=== PATIENT | male | born 1975 | race Caucasian/White ===

== ENCOUNTER 2018-04-23 21:36 | Emergency (ER) | payer BC ==
[2018-04-23 21:47] VITALS: TEMP 98.3
[2018-04-23] MEDS ORDERED: HYDROcodone/APAP 5-325MG 1 EACH TAB PO STA (23:12)
[2018-04-23] MEDS ORDERED: KETOROLAC 30 MG/ML 1 ML VIAL IM STA (23:12)
[2018-04-23 23:14] VITALS: BP 164/98; PULSE 75; RESP 18
--- NOTE | 2018-04-23 23:56 | XR ---
EXAMINATION TYPE: XR Hip RT and AP Pelvis DATE OF EXAM: 04/23/2018 COMPARISON: NONE HISTORY: Back pain. Right buttock pain TECHNIQUE: A single AP view of the pelvis is obtained. Two views of the right hip are obtained. FINDINGS: Pelvic ring is intact. Proximal right femur and hip joint appear normal. There is no sign o f hip dysplasia. IMPRESSION: Negative pelvis and right hip exam.
--- NOTE | 2018-04-23 23:56 | XR ---
EXAMINATION TYPE: XR lumbosacral spine min 4V DATE OF EXAM: 04/23/2018 COMPARISON: NONE HISTORY: Back pain TECHNIQUE: 5 views FINDINGS: Lumbar vertebra have normal spacing and alignment. Posterior elements are intact. Sacroilia c joints appear normal. IMPRESSION: Normal lumbar spine. No fracture.
[2018-04-24] MEDS ORDERED: ACET/COD 300 MG/30 MG STARTER PACK 6 TAB BTL PO STA (01:08)
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
== END 2018-04-24 01:54 | disposition home or self-care (01) ==
LOC: EC 21:36
DX: S76.011A Strain of muscle, fascia and tendon of right hip, initial encounter (principal); M54.5 Low back pain; I10 Essential (primary) hypertension; Z79.899 Other long term (current) drug therapy; Z88.8 Allergy status to other drugs, medicaments and biological substances; W01.0XXA Fall on same level from slipping, tripping and stumbling without subsequent striking against object, initial encounter; Y92.89 Other specified places as the place of occurrence of the external cause; Z53.8 Procedure and treatment not carried out for other reasons
CPT/HCPCS: 72110; 73502; 99283; 96372; J1885

== ENCOUNTER 2019-02-23 19:10 | Observation (INO) | payer BC ==
[2019-02-23] MEDS ORDERED: ASPIRIN 81 MG PO STA (19:46)
[2019-02-23] MEDS ORDERED: SODIUM CHLORIDE 0.9% 2,000 ML IV ONE (19:46)
--- NOTE | 2019-02-23 19:50 | ED ---
Chest Pain HPI - General Chief Complaint: Chest Pain Stated Complaint: chest tightness Time Seen by Provider: 02/23/19 19:31 Source: patient Mode of arrival: wheelchair Limitations: no limitations - History of Present Illness Initial Comments: Patient presents with a chief complaint of palpitations. This been going on since today. The patient states that he was at work and felt a sudden fluttering in his chest. He tried to rest but this did not alleviate his symptoms. He denies identify any inciting incidences. There were no aggravating or alleviating factors. Timing was constant. Patient states that he has never had any previous episodes of the same. He did not have any cardiac history. - Related Data Home Medications Medication Instructions Recorded Confirmed Losartan Potassium [Cozaar] 100 mg PO DAILY 04/23/18 02/23/19 Sertraline HCl [Zoloft] 100 mg PO DAILY 04/23/18 02/23/19 Hydrochlorothiazide [Hydrodiuril] 25 mg PO DAILY 02/23/19 02/23/19 Allergies Allergy/AdvReac Type Severity Reaction Status Date / Time prochlorperazine AdvReac Hallucinati Verified 02/23/19 19:57 [From Compazine] ons prochlorperazine edisylate AdvReac Hallucinati Verified 02/23/19 19:57 [From Compazine] ons prochlorperazine maleate AdvReac Hallucinati Verified 02/23/19 19:57 [From Compazine] ons Review of Systems ROS Statement: Those systems with pertinent positive or pertinent negative responses have been documented in the HPI. ROS Other: All systems not noted in ROS Statement are negative. Cardiovascular: Reports: palpitations Past Medical History Past Medical History: Hypertension Additional Past Medical History / Comment(s): fx L4-L5 History of Any Multi-Drug Resistant Organisms: None Reported Past Surgical History: No Surgical Hx Reported Past Psychological History: No Psychological Hx Reported Smoking Status: Never smoker Past Alcohol Use History: None Reported Past Drug Use History: None Reported General Exam Limitations: no limitations General appearance: alert, in no apparent distress Head exam: Present: atraumatic, normocephalic Eye exam: Present: normal appearance ENT exam: Present: normal exam Neck exam: Present: normal inspection Respiratory exam: Present: normal lung sounds bilaterally. Absent: respiratory distress, wheezes Cardiovascular Exam: Present: regular rate, tachycardia GI/Abdominal exam: Present: soft. Absent: distended, tenderness Rectal exam: Present: deferred Extremities exam: Present: normal inspection Back exam: Present: normal inspection Neurological exam: Present: alert, oriented X3 Psychiatric exam: Present: normal affect, normal mood Skin exam: Present: warm, dry, intact Course Vital Signs 02/23/19 02/23/19 02/23/19 19:18 19:39 19:40 Temperature 98.9 F Pulse Rate 144 H 147 H Pulse Rate [ 146 H Pulse Oximetery ] Respiratory 20 25 H Rate Blood Pressure 146/103 142/114 O2 Sat by Pulse 96 96 Oximetry 02/23/19 02/23/19 02/23/19 19:50 20:10 20:30 Temperature Pulse Rate 101 H 98 93 Pulse Rate [ Pulse Oximetery ] Respiratory 18 16 14 Rate Blood Pressure 135/101 137/104 O2 Sat by Pulse 95 96 Oximetry Chest Pain MDM - [facility] Patient presents with a chief complaint of palpitations. On initial evaluation, vital signs show tachycardia but otherwise stable. Initial EKG shows SVT with a rate of 147 bpm. After an attempt vagal maneuvers, the patient converted to sinus rhythm. Repeat EKG at 194 shows sinus tachycardia with a rate of 102 bpm, segments are within normal limits, no acute ischemic findings. Patient be evaluated patient basic labs including cardiac enzymes and chest x-ray. 9:09 PM Laboratory evaluation this patient is unremarkable. Chest x-ray shows no acute process. On several re-evaluations, the patient remains in normal sinus rhythm. He is symptom-free at this time. Case discussed with Dr. Moore who accepts admission. I will place a consult to cardiology. Disposition Clinical Impression: Moderate risk chest pain, SVT (supraventricular tachycardia) Disposition: ADMITTED IP TO THIS HOSP Condition: Good Is patient prescribed a controlled substance at d/c from ED?: No Referrals: None,Stated [Primary Care Provider] - 1-2 days Decision to Admit Reason: Admit from EC - Out of Hospital Transfer - Req. Specs Out of Hospital Transfer - Requested Specifics: Telemetry Unit
[2019-02-23 20:08] LABS: Basophils # (A) 0.1 k/uL (0-0.2); Basophils % (A) 1 %; Eosinophils # (A) 0.6 k/uL (0-0.7); Eosinophils % (A) 7 %; HCT 49.4 % (39.0-53.0); HGB 15.8 gm/dL (13.0-17.5); Lymphocytes # (A) 2.3 k/uL (1.0-4.8); Lymphocytes % (A) 26 %; MCH 27.8 pg (25.0-35.0); MCHC 32.1 g/dL (31.0-37.0); MCV 86.6 fL (80.0-100.0); Mean Platelet Volume 6.9; Monocytes # (A) 0.6 k/uL (0-1.0); Monocytes % (A) 7 %; Neutrophils % (A) 57 %; Platelet Count 293 k/uL (150-450); RDW 13.3 % (11.5-15.5); WBC 8.9 k/uL (3.8-10.6)
[2019-02-23 20:17] LABS: African American GFR (CKD) >90 (>60 ml/min/1.73 sqM); Anion Gap 10 mmol/L; Blood Urea Nitrogen 17 mg/dL (9-20); Calcium 9.4 mg/dL (8.4-10.2); Carbon Dioxide 26 mmol/L (22-30); Chloride 106 mmol/L (98-107); Glucose 101 mg/dL (74-99); Potassium 3.8 mmol/L (3.5-5.1); Sodium 142 mmol/L (137-145)
--- NOTE | 2019-02-23 20:30 | XR ---
EXAMINATION TYPE: XR chest 2V DATE OF EXAM: 02/23/2019 COMPARISON: NONE HISTORY: Short of breath TECHNIQUE: Frontal and lateral views of the chest are obtained. FINDINGS: Heart and mediastinum are normal. Lungs are clear of infiltrate. There is no pleural effus ion. Bony thorax is intact. IMPRESSION: No active cardiopulmonary disease. Normal heart.
[2019-02-23] MEDS ORDERED: NALOXONE 0.4 MG/ML 1 ML VIAL IV PRN (21:11)
--- NOTE | 2019-02-23 22:37 | P.HPIM ---
History of Present Illness H&P Date: 02/23/19 The patient is a 44 yo M with a PMH of HTN who presented to the ED for sudden onset of palpitations. The patient reports that he was in his usual state of health, had finished a day of work and was sitting in a chair when he suddenly developed palpitations with subsequent chest tightness and shortness of breath. The palpitations were non-remitting. He has never had such symptoms before. The patient continued to have his symptoms along with a substernal chest tightness for which he came to the ED where he was noted to be tachycardic to 150 with SVT. He underwent a tilt-table vagal maneuver which aborted the SVT. He noted no prior cardiac history and denied fever, chills, nausea, or vomiting. Also denied abdominal pain, diarrhea, LE pain, LE swelling, prolonged immobilization, recent travel, or sick contacts. The patient reported that the chest discomfort and SOB resolved 5 minutes after resolution of SVT. Laboratory evaluation in the ED revealed Troponin < 0.012, BNP 146, TSH 1.93, K 3.8, Cr 0.82, WBC 8.9, and Hgb 15.8. CXR revealed no acute abnormalities. EKG revealed SVT @ 139 bpm. He is being admitted to the medicine service under observation for cardiology evaluation. Review of Systems Pertinent positives and negatives as discussed in HPI, a complete review of systems was performed and all other systems are negative. Past Medical History Past Medical History: Hypertension Additional Past Medical History / Comment(s): fx L4-L5 History of Any Multi-Drug Resistant Organisms: None Reported Past Surgical History: No Surgical Hx Reported Past Psychological History: No Psychological Hx Reported Smoking Status: Never smoker Past Alcohol Use History: None Reported Past Drug Use History: None Reported - Past Family History Mother Family Medical History: Diabetes Mellitus Medications and Allergies Home Medications Medication Instructions Recorded Confirmed Type Losartan Potassium [Cozaar] 100 mg PO DAILY 04/23/18 02/23/19 History Sertraline HCl [Zoloft] 100 mg PO DAILY 04/23/18 02/23/19 History Hydrochlorothiazide [Hydrodiuril] 25 mg PO DAILY 02/23/19 02/23/19 History Allergies Allergy/AdvReac Type Severity Reaction Status Date / Time prochlorperazine AdvReac Hallucinati Verified 02/23/19 19:57 [From Compazine] ons prochlorperazine edisylate AdvReac Hallucinati Verified 02/23/19 19:57 [From Compazine] ons prochlorperazine maleate AdvReac Hallucinati Verified 02/23/19 19:57 [From Compazine] ons Physical Exam Vitals: Vital Signs Temp Pulse Pulse Resp BP Pulse Ox 02/23/19 20:30 93 14 137/104 96 02/23/19 20:10 98 16 135/101 02/23/19 19:50 101 H 18 95 02/23/19 19:40 146 H 02/23/19 19:39 147 H 25 H 142/114 96 02/23/19 19:18 98.9 F 144 H 20 146/103 96 Intake and Output 02/23/19 02/23/19 02/23/19 06:59 14:59 22:59 Other: Weight 165.561 kg General: non toxic, no distress, appears at stated age, obese M Derm: no unusual rashes/lesions no unusual ecchymoses, warm, dry Head: atraumatic, normocephalic, symmetric Eyes: EOMI, no lid lag, anicteric sclera, pupils equal round reactive to light ENT: Nose and ears atraumatic, no thrush, no pharyngeal erythema Neck: No thyromegaly, no cervical lymphadenopathy, trachea midline, supple Mouth: no lip lesion, mucus membranes moist Cardiovascular: S1S2 reg, no murmur, positive posterior tibial pulse bilateral, no edema, capillary refill less than 2 seconds Lungs: CTA bilateral, no rhonchi, no rales , no accessory muscle use Abdominal: soft, nontender to palpation, no guarding, no appreciable organomegaly, normal bowel sounds Ext: no gross muscle atrophy, muscle strength 5 out of 5 in all 4 extremities grossly, no contractures, Neuro: CN II-XI grossly intact, light touch intact all 4 extremities, finger to nose within normal limits, Psych: Alert, oriented, appropriate affect Results CBC & Chem 7: 02/23/19 19:35 02/23/19 19:35 Labs: Abnormal Lab Results - Last 24 Hours (Table) 02/23/19 Range/Units 19:35 Glucose 101 H (74-99) mg/dL Assessment and Plan Plan: Supraventricular tachycardia -C/w Cardiac monitoring -Cardiology consulted -Trend troponin HTN -Resume home meds Morbid obesity -Advised patient on importance of lifestyle modifications and follow-up as outpatient DVT prophylaxis -Heparin The patient is admitted with an anticipated less than 2 midnight stay for evaluation of SVT CODE STATUS:Full Code Discussed with: Patient Anticipated discharge date: 02/24/[address]: Home A total of 40 minutes was spent on the care of this complex patient more than 50% of the time was spent in counseling and care coordination.
[2019-02-24] MEDS: HEPARIN SODIUM,PORCINE 5,000 UNIT/ML 1 ML VIAL SQ SCH ×2 (00:07→10:07)
[2019-02-24 07:13] LABS: Basophils # (A) 0.1 k/uL (0-0.2); Basophils % (A) 1 %; Eosinophils # (A) 0.5 k/uL (0-0.7); Eosinophils % (A) 9 %; HCT 47.1 % (39.0-53.0); HGB 14.7 gm/dL (13.0-17.5); Lymphocytes # (A) 1.6 k/uL (1.0-4.8); Lymphocytes % (A) 29 %; MCH 27.7 pg (25.0-35.0); MCHC 31.2 g/dL (31.0-37.0); MCV 88.7 fL (80.0-100.0); Mean Platelet Volume 7.7; Monocytes # (A) 0.5 k/uL (0-1.0); Monocytes % (A) 8 %; Neutrophils # (A) 2.9 k/uL (1.3-7.7); Neutrophils % (A) 51 %; Platelet Count 210 k/uL (150-450); RBC 5.31 m/uL (4.30-5.90); RDW 14.7 % (11.5-15.5); WBC 5.7 k/uL (3.8-10.6)
[2019-02-24 07:30] LABS: African American GFR (CKD) >90 (>60 ml/min/1.73 sqM); Anion Gap 6 mmol/L; Blood Urea Nitrogen 16 mg/dL (9-20); Calcium 8.6 mg/dL (8.4-10.2); Carbon Dioxide 30 mmol/L (22-30); Chloride 106 mmol/L (98-107); Glucose 114 mg/dL (74-99); Potassium 4.1 mmol/L (3.5-5.1); Sodium 142 mmol/L (137-145)
[2019-02-24 08:02] VITALS: RESP 16; TEMP 98
[2019-02-24] MEDS ORDERED: LOSARTAN 50 MG TAB PO SCH (09:00)
[2019-02-24] MEDS ORDERED: HYDROCHLOROTHIAZIDE 25 MG TAB PO SCH (09:00)
[2019-02-24] MEDS ORDERED: METOPROLOL TARTRATE 50 MG TAB PO SCH (09:45)
[2019-02-24 11:24] VITALS: BP 146/79; PULSE 79
--- NOTE | 2019-02-24 11:43 | P.DS ---
Providers Date of admission: 02/23/19 21:11 Expected date of discharge: 02/24/19 Attending physician: Oral Moore MD Consults: 02/23/19 21:12 Consult Physician Routine Consulting Provider: Drew Anguiano Consult Reason/Comments: SVT, chest pain Do you want consulting provider notified?: Yes, Notify in am Primary care physician: Stated None - Discharge Diagnosis(es) (1) SVT (supraventricular tachycardia) Status: Acute (2) Essential hypertension Status: Acute (3) Morbid obesity Status: Acute Hospital Course: The patient is a 44 yo M with a PMH of HTN who presented to the ED for sudden onset of palpitations and chest pain and was admitted with supraventricular tachycardia after he was noted to have a heart rate of 150. In the ED he patient underwent tilt table vagal maneuver which aborted his SVT. The patient was seen by cardiology and echocardiogram was ordered revealing preserved LVEF of 60-65%, patient was subsequently cleared for discharge and started on metoprolol. He was subsequently discharged home in stable condition and told to follow-up with cardiology in 2 weeks. This discharge process took approximately 30 minutes Focused exam Cardiovascular: regular rate and rhythm, no murmurs, rubs or gallops Patient Condition at Discharge: Good Plan - Discharge Summary Discharge Rx Participant: Yes New Discharge Prescriptions: New Metoprolol Tartrate [Lopressor] 50 mg PO DAILY #30 tab Metoprolol Tartrate [Lopressor] 25 mg PO HS #30 tab Continue Losartan Potassium [Cozaar] 100 mg PO DAILY Sertraline HCl [Zoloft] 100 mg PO DAILY Hydrochlorothiazide [Hydrodiuril] 25 mg PO DAILY Discharge Medication List Losartan Potassium [Cozaar] 100 mg PO DAILY 04/23/18 [History] Sertraline HCl [Zoloft] 100 mg PO DAILY 04/23/18 [History] Hydrochlorothiazide [Hydrodiuril] 25 mg PO DAILY 02/23/19 [History] Metoprolol Tartrate [Lopressor] 25 mg PO HS #30 tab 02/24/19 [Rx] Metoprolol Tartrate [Lopressor] 50 mg PO DAILY #30 tab 02/24/19 [Rx] Follow up Appointment(s)/Referral(s): Nic Castillo MD [STAFF PHYSICIAN] - 03/11/19 2:00 pm None,Stated [Primary Care Provider] - 1 Week (Call [facility] for a list of providers.) Patient Instructions/Handouts: Supraventricular Tachycardia (DC), Chest Pain (DC) Discharge Disposition: HOME SELF-CARE
--- NOTE | 2019-02-24 12:27 | ECHOF ---
Referral Reason:Assess LV function MEASUREMENTS -------- HEIGHT: 193.0 cm WEIGHT: 165.1 kg BP: 156/88 RVIDd: 3.2 cm (< 3.3) IVSd: 1.5 cm (0.6 - 1.1) LVIDd: 4.2 cm (3.9 - 5.3) LVPWd: 1.5 cm (0.6 - 1.1) IVSs: 1.8 cm LVIDs: 3.1 cm LVPWs: 1.6 cm LA Diam: 3.8 cm (2.7 - 3.8) LAESV Index (A-L): 26.06 ml/m Ao Diam: 4.0 cm (2.0 - 3.7) MV EXCURSION: 16.790 mm (> 18.000) MV EF SLOPE: 76 mm/s (70 - 150) EPSS: 0.5 cm MV E Charlie: 0.75 m/s MV DecT: 211 ms MV A Charlie: 0.57 m/s MV E/A Ratio: 1.31 FINDINGS -------- Sinus rhythm. This was a technically difficult study with suboptimal views. The left ventricular size is normal. There is moderate concentric left ventricular hypertrophy. O verall left ventricular systolic function is normal with, an EF between 60 - 65 %. The right ventricle is normal in size. Normal LA size by volume 22+/-6 ml/m2. The right atrium is normal in size. 5 ml of Lumason was utilized for enhancement of images. Interatrial and interventricular septum intact. The aortic valve was not well visualized. The mitral valve is normal. The tricuspid valve was not well visualized. The pulmonic valve was not well visualized. The aortic root is dilated measuring 4.0cm. Normal inferior vena cava with normal inspiratory collapse consistent with estimated right atrial pre ssure of 5 mmHg. There is no pericardial effusion. CONCLUSIONS -------- 1. Sinus rhythm. 2. This was a technically difficult study with suboptimal views. 3. The left ventricular size is normal. 4. There is moderate concentric left ventricular hypertrophy. 5. Overall left ventricular systolic function is normal with, an EF between 60 - 65 %. 6. The right ventricle is normal in size. 7. Normal LA size by volume 22+/-6 ml/m2. 8. The right atrium is normal in size. 9. 5 ml of Lumason was utilized for enhancement of images. 10. Interatrial and interventricular septum intact. 11. The aortic valve was not well visualized. 12. The mitral valve is normal. 13. The tricuspid valve was not well visualized. 14. The pulmonic valve was not well visualized. 15. The aortic root is dilated measuring 4.0cm. 16. Normal inferior vena cava with normal inspiratory collapse consistent with estimated right atrial pressure of 5 mmHg. 17. There is no pericardial effusion. COMMUNICATIONS OFFICER: Becky Yen RDCS
--- NOTE | 2019-02-24 12:37 | P.CRDCN ---
History of Present Illness Consult date: 02/24/19 Reason for Consult (text): SVT/chest pain Chief complaint: SVT/chest pain History of present illness: HISTORY OF PRESENT ILLNESS AND PLAN: This is a [44]-year-old [male] with history of hypertension, L4L5 fracture, ob esity, collar bone fracture and diverticulitis. Patient presents in the emergency department with complaints of [palpitations, lightheadedness and mild chest pressure. Patient states he was sitting at the chris in a chair when suddenly he felt fluttering/palpitations in his chest. Patient states he also felt lightheaded and began to experience chest tightness. States he checked heart rate at home and it was 115. Denies aggravating or relieving factors. Pt has history of obesity and hypertension. Takes Losartan 100 mg daily and HZTZ 25mg daily at home. States he had not drink any alcohol during the event. He is a nonsmoker. He does have a history of low magnesium and low potassium. C urrently sitting in bed with no complaints of chest pain, chest pressure, shortness of breath or palpitations. Does not follow with cardiology. No A. fib history.]. SIGNIFICANT PAST MEDICAL HISTORY: [Hypokalemia, hypomagnesium, hypertension, L4L5 fracture, obesity, collar bone fracture and diverticulitis.] PAST SURGICAL HISTORY: See list. EKG shows [sinus rhythm], heart rate [87] bpm. Troponins negative x [3]. SIGNIFICANT LABORATORY VALUES: [CBC/BMP, WNL K4.1 Magnesium 2.2. Troponins negative 3]. Chest x-ray [WNL]. [facility] = WNL. Preserved systolic function, EF WNL. REVIEW OF SYSTEMS: CONSTITUTIONAL: [Denies fever. Denies chills. Complains of prior lightheadedness none currently.] EYES: Denies blurred vision. [Denies blurred vision or vision changes. Denies eye pain.] EARS, NOSE, MOUTH & THROAT: [Denies headache. Denies sore throat. Denies ear pain Denies hemoptysis.] CARDIOVASCULAR: [C/o prior chest pain. Denies shortness of breath. Denies orthopnea. Denies PND. C/O prior palpitations.] RESPIRATORY: [Denies cough. Denies shortness of breath. ] GASTROINTESTINAL: [Denies abdominal pain or distention. Denies diarrhea. Denies constipation. Denies nausea. Denies vomiting.] MUSCULOSKELETAL: [Denies myalgias.] INTEGUMENTARY: [Denies pruitis. Denies rash.] ENDOCRINE: [Denies fatigue. Denies weight change. Denies polydipsia. Denies po lyurina Denies heat/cold intolerance.] GENITOURINARY:[ Denies burning, hematuria or urgency with micturation.] HEMATOLOGIC: [Denies history of anemia. Denies bleeding.] NEUROLOGIC: [Denies numbness. Denies tingling. Denies weakness.] PSYCHIATRIC: [Denies anxiety. Denies depression.] PHYSICAL EXAM: VITAL SIGNS: WNL GENERAL: Well developed, in no acute distress. HEENT: Head is atraumatic, normocephalic. Pupils are equal, round. Extra ocular movements intact. Mucous membranes moist. Neck supple. No JVD. No carotid bruit. No thyromegaly. LUNGS: Clear to auscultation no wheezes, rales or rhonchi. No chest wall tenderness on palpation or with deep breathing. HEART: Regular rate and rhythm, no rubs or gallops. S1 and S2 heard. No murmur. ABDOMEN: Abdominal exam, WNL. Bowel sounds x4 quads. Soft, non-tender, without masses, organomegaly, or abdominal aorta enlargement. EXTREMITIES/VASCULAR: Extremities have easily palpable radial, femoral, dorsalis pedis and posterior tibial pulses. No cyanosis, calf tenderness. No BLE edema. NEUROLOGIC: Patient is awake, alert and oriented x3. No focal neurologic abnormalities. FINAL IMPRESSION: 1. [sinus tachycardia - resolved]. 2. [chest pain- resolved]. 3. [hypertension -currently stable]. 4. [obesity]. PLAN: [Patient to echocardiogram, already completed, preserved systolic functio n, EF WNL. Patient currently sinus rhythm heart rate 80s. Start metoprolol tartrate 50 mg a.m. and 25 mg p.m. Patient advised to eat foods high in potassium and magnesium with HZTZ. Patient advised weight loss and exercise. Clear from a cardiology perspective for discharge. Thank you kindly for this consult.] Nurse Practitioner note has been reviewed by the Physician. Signing provider agrees with the documented findings, assessment and plan of care. Past Medical History Past Medical History: Hypertension Additional Past Medical History / Comment(s): fx L4-L5 History of Any Multi-Drug Resistant Organisms: None Reported Past Surgical History: No Surgical Hx Reported Smoking Status: Never smoker - Past Family History Mother Family Medical History: Diabetes Mellitus Medications and Allergies Home Medications Medication Instructions Recorded Confirmed Type Losartan Potassium [Cozaar] 100 mg PO DAILY 04/23/18 02/23/19 History Sertraline HCl [Zoloft] 100 mg PO DAILY 04/23/18 02/23/19 History Hydrochlorothiazide [Hydrodiuril] 25 mg PO DAILY 02/23/19 02/23/19 History Metoprolol Tartrate [Lopressor] 25 mg PO HS #30 tab 02/24/19 Rx Metoprolol Tartrate [Lopressor] 50 mg PO DAILY #30 tab 02/24/19 Rx Allergies Allergy/AdvReac Type Severity Reaction Status Date / Time prochlorperazine AdvReac Hallucinati Verified 02/23/19 19:57 [From Compazine] ons prochlorperazine edisylate AdvReac Hallucinati Verified 02/23/19 19:57 [From Compazine] ons prochlorperazine maleate AdvReac Hallucinati Verified 02/23/19 19:57 [From Compazine] ons Physical Exam Vitals: Vital Signs Temp Pulse Pulse Resp BP BP BP 02/24/19 11:24 98 F 79 16 146/79 02/24/19 08:00 98 F 88 16 156/88 02/24/19 04:00 84 18 142/94 02/24/19 00:00 97.9 F 88 18 150/100 151/93 02/23/19 22:50 97.8 F 02/23/19 22:30 97.8 F 86 18 148/99 02/23/19 21:10 93 17 143/101 02/23/19 20:50 93 16 148/98 02/23/19 20:40 103 H 16 150/106 02/23/19 20:30 93 14 137/104 02/23/19 20:10 98 16 135/101 02/23/19 19:50 101 H 18 02/23/19 19:40 146 H 02/23/19 19:39 147 H 25 H 142/114 02/23/19 19:18 98.9 F 144 H 20 146/103 Pulse Ox 02/24/19 11:24 98 02/24/19 08:00 96 02/24/19 04:00 94 L 02/24/19 00:00 94 L 02/23/19 22:50 02/23/19 22:30 94 L 02/23/19 21:10 97 02/23/19 20:50 95 02/23/19 20:40 97 02/23/19 20:30 96 02/23/19 20:10 02/23/19 19:50 95 02/23/19 19:40 02/23/19 19:39 96 02/23/19 19:18 96 Intake and Output 02/23/19 02/24/19 02/24/19 22:59 06:59 14:59 Intake Total 300 Balance 300 Intake: Oral 300 Other: Voiding Method Toilet Toilet # Voids 1 Weight 165.561 kg 165.2 kg Results 02/24/19 06:50 02/24/19 06:50 Cardiac Enzymes 02/23/19 02/24/19 02/24/19 Range/Units 19:35 01:45 06:50 Troponin I <0.012 <0.012 <0.012 (0.000-0.034) ng/mL CBC 02/23/19 02/24/19 Range/Units 19:35 06:50 WBC 8.9 5.7 (3.8-10.6) k/uL RBC 5.70 5.31 (4.30-5.90) m/uL Hgb 15.8 14.7 (13.0-17.5) gm/dL Hct 49.4 47.1 (39.0-53.0) % Plt Count 293 210 (150-450) k/uL Comprehensive Metabolic Panel 02/23/19 02/24/19 Range/Units 19:35 06:50 Sodium 142 142 (137-145) mmol/L Potassium 3.8 4.1 (3.5-5.1) mmol/L Chloride 106 106 (98-107) mmol/L Carbon Dioxide 26 30 (22-30) mmol/L BUN 17 16 (9-20) mg/dL Creatinine 0.82 0.84 (0.66-1.25) mg/dL Glucose 101 H 114 H (74-99) mg/dL Calcium 9.4 8.6 (8.4-10.2) mg/dL Current Medications Generic Name Dose Route Start Last Admin Trade Name Freq PRN Reason Stop Dose Admin Heparin Sodium (Porcine) 5,000 unit 02/24/19 00:00 02/24/19 10:07 Heparin SQ Not Given Q8HR CABRERA Hydrochlorothiazide 25 mg 02/24/19 09:00 02/24/19 10:06 Hydrodiuril PO 25 mg DAILY CABRERA Administration Losartan Potassium 100 mg 02/24/19 09:00 02/24/19 11:26 Cozaar PO 100 mg DAILY CABRERA Administration Metoprolol Tartrate 50 mg 02/24/19 09:45 02/24/19 10:06 Lopressor PO 50 mg DAILY CABRERA Administration Metoprolol Tartrate 25 mg 02/24/19 21:00 Lopressor PO HS CABRERA Naloxone HCl 0.2 mg 02/23/19 21:11 Narcan IV Q2M PRN Opioid Reversal Intake and Output 02/23/19 02/24/19 02/24/19 22:59 06:59 14:59 Intake Total 300 Balance 300 Intake: Oral 300 Other: Voiding Method Toilet Toilet # Voids 1 Weight 165.561 kg 165.2 kg 02/24/19 06:50 02/24/19 06:50 - EKG Interpretation EKG: sinus rhythm
[2019-02-24] MEDS ORDERED: METOPROLOL TARTRATE 25 MG TAB PO SCH (21:00)
== END 2019-02-24 13:31 | disposition home or self-care (01) ==
LOC: EC 19:10 → 3SCARD 21:11
PROVIDERS: ADMIT Internal Medicine; ATTEND Internal Medicine
DX: I47.1 Supraventricular tachycardia (principal); R07.89 Other chest pain; I10 Essential (primary) hypertension; E66.01 Morbid (severe) obesity due to excess calories; Z68.41 Body mass index [BMI] 40.0-44.9, adult; K57.90 Diverticulosis of intestine, part unspecified, without perforation or abscess without bleeding; Z79.899 Other long term (current) drug therapy; Z88.8 Allergy status to other drugs, medicaments and biological substances; Z87.81 Personal history of (healed) traumatic fracture; Z83.3 Family history of diabetes mellitus
CPT/HCPCS: 99285; 36415; 93005; 93306; 83880; 80048 ×2; 84443; 83735; 84484 ×2; 85025 ×2; 71046; G0378 ×2; Q9950

== ENCOUNTER 2019-06-29 17:42 | Emergency (ER) | payer BC ==
[2019-06-29 18:18] VITALS: PULSE 88
[2019-06-29] MEDS ORDERED: KETOROLAC 30 MG/ML 1 ML VIAL IM STA (18:46)
--- NOTE | 2019-06-29 19:21 | XR ---
EXAMINATION TYPE: XR ankle complete LT DATE OF EXAM: 06/29/2019 COMPARISON: NONE HISTORY: Pain FINDINGS: Three views of the ankle demonstrate the ankle mortise to be intact and symmetric. Soft tissue edema is seen. On the lateral view there is a lucency through the upper margin of the calcaneus. Correlate with point tenderness. Calcaneal spur noted. IMPRESSION: 1. There is a lucency along the upper margin of the calcaneus for which correlation with point tender ness is recommended. This could related to superimposed structures within the overlying talus. Correl ate clinically to exclude fracture.
--- NOTE | 2019-06-29 19:22 | XR ---
EXAMINATION TYPE: XR foot complete LT DATE OF EXAM: 06/29/2019 COMPARISON: NONE HISTORY: Pain TECHNIQUE: Three views are submitted. FINDINGS: A lucency along the upper margin of the calcaneus which may represent superimposition the talus relat ty the calcaneus. Spur is noted. Remaining osseous structures intact. Joint spaces are preserved. IMPRESSION: 1. Lucency along the upper margin of the calcaneus most likely related to superimposed talus overlyin g portions of the calcaneus. Correlation with point tenderness is recommended
--- NOTE | 2019-06-29 20:36 | CT ---
EXAMINATION TYPE: CT ankle LT wo con DATE OF EXAM: 06/29/2019 COMPARISON: Left ankle and foot x-ray earlier today HISTORY: left ankle pain and swelling, no injury. CT DLP: 48.8 mGycm Automated exposure control for dose reduction was used. CONTRAST: Performed without IV contrast CT left ankle. FINDINGS: Os trigonum is present posterior to talus. No acute fracture is seen. Ankle mortise symmetr y is maintained. There is some subchondral cystic change involving the os trigonum with some surround ing joint effusion from the posterior tibiotalar joint. Marked focal fluid along the lateral margin o f the FHL axial image 32 posterior to distal tibial metaphysis mild subcutaneous edema over lateral m alleolus. Small to moderate-sized superior calcaneal spur. IMPRESSION: No acute fracture or dislocation in the left ankle. Probable prominent focal tenosynoviti s of FHL. 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 MRI noted more sensitive for both. Correlate clinically.
[2019-06-29] MEDS ORDERED: IBUPROFEN 600 MG STARTER PACK 4 TAB BTL PO STA (20:47)
[2019-06-29] MEDS ORDERED: ACET/COD 300 MG/30 MG STARTER PACK 6 TAB BTL PO STA (20:47)
--- NOTE | 2019-06-29 20:47 | ED ---
Extremity Problem HPI - General Chief complaint: Extremity Problem,Nontraumatic Stated complaint: ankle injury Time Seen by Provider: 06/29/19 18:20 Source: patient Mode of arrival: wheelchair Limitations: physical limitation - History of Present Illness Initial comments: 44-year-old male patient presents to the emergency department today for evaluation of left ankle and foot pain. Patient states he has been having this pain intermittently over the last couple of years. Patient states over the last 2 days it has been much worse. States he woke this morning with significant pain was unable to bend the ankle. States that was causing extreme discomfort to ambulate. States he did take several medications at home including Aleve, ibuprofen, mobic, and Ultram without relief. He denies any known injury. Patient states that he did see foot and ankle specialist 3 days ago who did administer a cortisone injection to the joint. Patient states that this did not seem to help. He denies any numbness or tingling to the foot. Denies fever or chills. Denies any swelling or redness to the area. Patient denies any headache, neck pain, back pain, chest pain, shortness of breath, dizziness, weakness, abdominal pain, nausea, vomiting, or difficulties with bowel movements or urination. - Related Data Home Medications Medication Instructions Recorded Confirmed Losartan Potassium [Cozaar] 100 mg PO DAILY 04/23/18 06/29/19 Sertraline HCl [Zoloft] 75 mg PO DAILY 04/23/18 06/29/19 Hydrochlorothiazide [Hydrodiuril] 25 mg PO DAILY 02/23/19 06/29/19 ALPRAZolam [Xanax] 0.5 mg PO DAILY PRN 06/29/19 06/29/19 Aspirin/Acetaminophen/Caffeine 1 - 2 tab PO Q6H PRN 06/29/19 06/29/19 [Excedrin Migraine Caplet] Naproxen Sodium [Aleve] 440 mg PO BID PRN 06/29/19 06/29/19 Previous Rx's Medication Instructions Recorded Metoprolol Tartrate [Lopressor] 50 mg PO DAILY #30 tab 02/24/19 Allergies Allergy/AdvReac Type Severity Reaction Status Date / Time prochlorperazine AdvReac Hallucinati Verified 06/29/19 19:34 [From Compazine] ons prochlorperazine edisylate AdvReac Hallucinati Verified 06/29/19 19:34 [From Compazine] ons prochlorperazine maleate AdvReac Hallucinati Verified 06/29/19 19:34 [From Compazine] ons Review of Systems ROS Statement: Those systems with pertinent positive or pertinent negative responses have been documented in the HPI. ROS Other: All systems not noted in ROS Statement are negative. Past Medical History Past Medical History: Hypertension Additional Past Medical History / Comment(s): fx L4-L5 History of Any Multi-Drug Resistant Organisms: None Reported Past Surgical History: No Surgical Hx Reported Past Psychological History: No Psychological Hx Reported Smoking Status: Never smoker Past Alcohol Use History: None Reported Past Drug Use History: None Reported - Past Family History Mother Family Medical History: Diabetes Mellitus General Exam Limitations: physical limitation General appearance: alert, in no apparent distress, other (This is a well- developed, well-nourished adult male patient in no acute distress. Vital signs upon presentation are temperature 98.5F, pulse 88, respirations 19, blood pressure 129/78, pulse ox 97% on room air.) Respiratory exam: Present: normal lung sounds bilaterally. Absent: respiratory distress, wheezes, rales, rhonchi, stridor Cardiovascular Exam: Present: regular rate, normal rhythm, normal heart sounds. Absent: systolic murmur, diastolic murmur, rubs, gallop, clicks Extremities exam: Present: full ROM, tenderness (Surrounding the left lateral m alleolus and left lateral foot), normal capillary refill, other (Mild soft tissue swelling surrounding the left lateral malleolus. Skin to the foot is otherwise pink, warm, dry. Cap refills less than 3 seconds. Pedal pulses 2+ and equal bilaterally.). Absent: normal inspection, pedal edema, joint swelling, calf tenderness Neurological exam: Present: alert, oriented X3, CN II-XII intact Psychiatric exam: Present: normal affect, normal mood Skin exam: Present: warm, dry, intact, normal color. Absent: rash Course Vital Signs 06/29/19 06/29/19 18:16 21:02 Temperature 98.5 F 98.6 F Pulse Rate 88 88 Respiratory 19 18 Rate Blood Pressure 129/78 142/80 O2 Sat by Pulse 97 100 Oximetry Medical Decision Making - Medical Decision Making 44-year-old male patient presents to the emergency department today for evaluation of left ankle and foot pain. Physical examination did reveal some mild soft tissue swelling. X-rays were obtained and showed an irregular lucency over the talus, concerning for fracture. CT was obtained and showed evidence for os trigonum syndrome and tenosynovitis. I did discuss the findings and results with the patient. He'll be given crutches for comfort. He is instruct ed to follow-up with his foot and ankle specialist as soon as possible. Return parameters were discussed in detail. He verbalizes understanding and agrees with this plan. - Radiology Data Radiology results: report reviewed, image reviewed CT of the left ankle without contrast was obtained. Report is reviewed in its entirety. Impression by Dr. Tyler shows no acute fracture dislocation of the left ankle. Probable prominent focal tenosynovitis of the FHL. 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 MRI noted more sensitive for both. Correlate clinically. 3 views of the left foot are obtained. Report is reviewed in its entirety. Impression by Dr. Caruso shows lucency along the upper margin of the calcaneus most likely related to superimpose talus overlying portions of the calcaneus. Correlation with point tenderness is recommended. 3 views of the left ankle are obtained. Report was reviewed in its entirety. Impression by Dr. Caruso shows lucency along the upper margin of the calcaneus for which correlation with point tenderness is recommended. This could relate to superimpose structures with some overlying talus. Correlate clinically to exclude fracture. Disposition Clinical Impression: Os trigonum syndrome, Tenosynovitis of ankle Disposition: HOME SELF-CARE Condition: Good Instructions (If sedation given, give patient instructions): Tenosynovitis (ED), Arthralgia (ED) Additional Instructions: Take medication for pain control. Follow up with foot and ankle specialist for further evaluation and possible MRI. Return to the emergency department for any new, worsening, or concerning symptoms. Is patient prescribed a controlled substance at d/c from ED?: No Referrals: Lucio Peralta MD [Medical Doctor] - 1-2 days Time of Disposition: 20:46
[2019-06-29 21:04] VITALS: BP 142/80; RESP 18; TEMP 98.6
== END 2019-06-29 21:05 | disposition home or self-care (01) ==
LOC: EC 17:42
DX: M65.872 Other synovitis and tenosynovitis, left ankle and foot (principal); Q68.8 Other specified congenital musculoskeletal deformities; I10 Essential (primary) hypertension; Z88.8 Allergy status to other drugs, medicaments and biological substances; Z79.899 Other long term (current) drug therapy
CPT/HCPCS: 73610; 73630; 73700; 99284; 96372; J1885

== ENCOUNTER 2020-02-24 20:27 | Observation (INO) | payer BC ==
[2020-02-24] MEDS ORDERED: SODIUM CHLORIDE 0.9% 1,000 ML IV STA ×2 (20:50)
[2020-02-24] MEDS ORDERED: ADENOSINE 3 MG/ML 2 ML VIAL IVP STA (20:52)
[2020-02-24] MEDS ORDERED: ASPIRIN 81 MG PO STA (21:03)
[2020-02-24 21:05] LABS: Basophils # (A) 0.1 k/uL (0-0.2); Basophils % (A) 1 %; Eosinophils # (A) 0.6 k/uL (0-0.7); Eosinophils % (A) 6 %; HCT 47.9 % (39.0-53.0); HGB 15.7 gm/dL (13.0-17.5); Lymphocytes # (A) 2.4 k/uL (1.0-4.8); Lymphocytes % (A) 26 %; MCH 29.3 pg (25.0-35.0); MCHC 32.8 g/dL (31.0-37.0); MCV 89.4 fL (80.0-100.0); Mean Platelet Volume 7.4; Monocytes # (A) 0.8 k/uL (0-1.0); Monocytes % (A) 8 %; Neutrophils # (A) 5.3 k/uL (1.3-7.7); Neutrophils % (A) 56 %; Platelet Count 263 k/uL (150-450); RBC 5.35 m/uL (4.30-5.90); RDW 13.2 % (11.5-15.5); WBC 9.4 k/uL (3.8-10.6)
--- NOTE | 2020-02-24 21:08 | ED ---
Arrhythmia/Palpitations HPI - General Chief Complaint: Arrhythmia/Palpitations Stated Complaint: Chest pain, SOB Time Seen by Provider: 02/24/20 20:41 Source: patient, RN notes reviewed Mode of arrival: wheelchair Limitations: no limitations - History of Present Illness Initial Comments: This is a 45-year-old male with a history of hypertension a history of SVT about a year ago who presents with complaints the onset is prior to arrival of palpitations with rapid heartbeat and some midsternal chest pain and describes it as a tightness or achiness 3-4/10 severity also some shortness of breath with it. Patient did state that at home that chest discomfort was 6-7/10 in severity. He does state he was outside on a boat all day but he had been drinki ng lots of fluids. No recent fevers chills nausea vomiting sweats or other symptoms reported. He does state the chest discomfort might be more pronounced in his last episode. MD Complaint: rapid heart beat - Related Data Home Medications Medication Instructions Recorded Confirmed Losartan Potassium [Cozaar] 100 mg PO DAILY 04/23/18 02/24/20 Sertraline HCl [Zoloft] 50 mg PO DAILY 04/23/18 02/24/20 Hydrochlorothiazide [Hydrodiuril] 25 mg PO DAILY 02/23/19 02/24/20 ALPRAZolam [Xanax] 0.5 mg PO DAILY PRN 06/29/19 02/24/20 Allergies Allergy/AdvReac Type Severity Reaction Status Date / Time prochlorperazine AdvReac Hallucinati Verified 02/24/20 21:33 [From Compazine] ons prochlorperazine edisylate AdvReac Hallucinati Verified 02/24/20 21:33 [From Compazine] ons prochlorperazine maleate AdvReac Hallucinati Verified 02/24/20 21:33 [From Compazine] ons Review of Systems ROS Statement: Those systems with pertinent positive or pertinent negative responses have been documented in the HPI. ROS Other: All systems not noted in ROS Statement are negative. Past Medical History Past Medical History: Hypertension Additional Past Medical History / Comment(s): fx L4-L5 History of Any Multi-Drug Resistant Organisms: None Reported Past Surgical History: No Surgical Hx Reported Past Psychological History: No Psychological Hx Reported Smoking Status: Never smoker Past Alcohol Use History: None Reported Past Drug Use History: None Reported - Past Family History Mother Family Medical History: Diabetes Mellitus General Exam - General Exam Comments Initial Comments: This is a well-developed well-nourished awake alert oriented 3 male Limitations: no limitations General appearance: alert, anxious Head exam: Present: atraumatic, normocephalic, normal inspection Eye exam: Present: normal appearance, PERRL, EOMI. Absent: scleral icterus, conjunctival injection, periorbital swelling ENT exam: Present: normal exam, mucous membranes moist Neck exam: Present: normal inspection, full ROM, other (No stridor JVD or brui ts). Absent: tenderness, meningismus, lymphadenopathy Respiratory exam: Present: normal lung sounds bilaterally. Absent: respiratory distress, wheezes, rales, rhonchi, stridor, chest wall tenderness Cardiovascular Exam: Present: normal rhythm, tachycardia, normal heart sounds. Absent: systolic murmur, diastolic murmur, rubs, gallop, clicks GI/Abdominal exam: Present: soft, normal bowel sounds, other (Obese abdomen). A bsent: distended, tenderness, guarding, rebound, rigid Extremities exam: Present: normal inspection, full ROM, normal capillary refill. Absent: tenderness, pedal edema, joint swelling, calf tenderness Back exam: Present: normal inspection Neurological exam: Present: alert, oriented X3, CN II-XII intact Psychiatric exam: Present: normal affect, normal mood Skin exam: Present: warm, dry, intact, normal color. Absent: rash Course Vital Signs 02/24/20 02/24/20 20:35 21:00 Temperature 98.1 F Pulse Rate 144 H 98 Respiratory 20 18 Rate Blood Pressure 147/79 148/99 O2 Sat by Pulse 95 97 Oximetry - Reevaluation(s) Reevaluation #1: 02/24/20 21:07 I did attempt several vagal maneuvers on the patient without success very minimal response. Reevaluation #2: 02/24/20 21:07 6 mg of adenosine was given to the patient patient did respond with resolution of his SVT. 02/24/20 21:07 Patient states his chest discomfort had improved Reevaluation #3: 02/24/20 21:12 Patient's heart rate is 96 he does feel markedly better. Still some residual vague discomfort to his chest but nothing like earlier. Reevaluation #4: 02/24/20 21:13 Repeat EKG after cardioversion with adenosine reveals a sinus tachycardia of 108. Interval 154 QRS 90 QT since QTC 342/458 nonspecific T-wave configuration Reevaluation #5: 02/24/20 21:17 EKGs were compared with one year ago. Is some evidence of nonspecific T-wave abnormalities today. 02/24/20 21:31 Chest pain is totally resolved at this time. Medical Decision Making - Medical Decision Making I discussed the findings with the patient and his girlfriend who is a nurse was present. Patient is pain-free at this time however the symptoms are different than they were a year ago when he presented. After long discussion the patient has agreed to stay for evaluation by cardiology. His initial enzymes are within normal limits. I did discuss the case with Pam who is covering for Dr. Walsh - Lab Data Result diagrams: 02/24/20 20:52 02/24/20 20:52 Lab Results 02/24/20 02/24/20 02/24/20 Range/Units 20:52 20:52 20:52 WBC 9.4 (3.8-10.6) k/uL RBC 5.35 (4.30-5.90) m/uL Hgb 15.7 (13.0-17.5) gm/dL Hct 47.9 (39.0-53.0) % MCV 89.4 (80.0-100.0) fL MCH 29.3 (25.0-35.0) pg MCHC 32.8 (31.0-37.0) g/dL RDW 13.2 (11.5-15.5) % Plt Count 263 (150-450) k/uL Neutrophils % 56 % Lymphocytes % 26 % Monocytes % 8 % Eosinophils % 6 % Basophils % 1 % Neutrophils # 5.3 (1.3-7.7) k/uL Lymphocytes # 2.4 (1.0-4.8) k/uL Monocytes # 0.8 (0-1.0) k/uL Eosinophils # 0.6 (0-0.7) k/uL Basophils # 0.1 (0-0.2) k/uL PT 9.9 (9.0-12.0) sec INR 0.9 (<1.2) APTT 24.2 (22.0-30.0) sec D-Dimer 0.20 (<0.60) mg/L FEU Sodium 138 (137-145) mmol/L Potassium 3.9 (3.5-5.1) mmol/L Chloride 105 (98-107) mmol/L Carbon Dioxide 25 (22-30) mmol/L Anion Gap 8 mmol/L BUN 17 (9-20) mg/dL Creatinine 0.82 (0.66-1.25) mg/dL Est GFR (CKD-EPI)AfAm >90 (>60 ml/min/1.73 sqM) Est GFR (CKD-EPI)NonAf >90 (>60 ml/min/1.73 sqM) Glucose 105 H (74-99) mg/dL Calcium 9.3 (8.4-10.2) mg/dL Magnesium 2.2 (1.6-2.3) mg/dL Total Bilirubin 0.3 (0.2-1.3) mg/dL AST 18 (17-59) U/L ALT 30 (4-49) U/L Alkaline Phosphatase 89 (38-126) U/L Creatine Kinase 133 (55-170) U/L Troponin I (0.000-0.034) ng/mL Total Protein 7.0 (6.3-8.2) g/dL Albumin 4.1 (3.5-5.0) g/dL TSH 1.510 (0.465-4.680) mIU/L 02/24/20 Range/Units 20:52 WBC (3.8-10.6) k/uL RBC (4.30-5.90) m/uL Hgb (13.0-17.5) gm/dL Hct (39.0-53.0) % MCV (80.0-100.0) fL MCH (25.0-35.0) pg MCHC (31.0-37.0) g/dL RDW (11.5-15.5) % Plt Count (150-450) k/uL Neutrophils % % Lymphocytes % % Monocytes % % Eosinophils % % Basophils % % Neutrophils # (1.3-7.7) k/uL Lymphocytes # (1.0-4.8) k/uL Monocytes # (0-1.0) k/uL Eosinophils # (0-0.7) k/uL Basophils # (0-0.2) k/uL PT (9.0-12.0) sec INR (<1.2) APTT (22.0-30.0) sec D-Dimer (<0.60) mg/L FEU Sodium (137-145) mmol/L Potassium (3.5-5.1) mmol/L Chloride (98-107) mmol/L Carbon Dioxide (22-30) mmol/L Anion Gap mmol/L BUN (9-20) mg/dL Creatinine (0.66-1.25) mg/dL Est GFR (CKD-EPI)AfAm (>60 ml/min/1.73 sqM) Est GFR (CKD-EPI)NonAf (>60 ml/min/1.73 sqM) Glucose (74-99) mg/dL Calcium (8.4-10.2) mg/dL Magnesium (1.6-2.3) mg/dL Total Bilirubin (0.2-1.3) mg/dL AST (17-59) U/L ALT (4-49) U/L Alkaline Phosphatase (38-126) U/L Creatine Kinase (55-170) U/L Troponin I <0.012 (0.000-0.034) ng/mL Total Protein (6.3-8.2) g/dL Albumin (3.5-5.0) g/dL TSH (0.465-4.680) mIU/L - Radiology Data Radiology results: report reviewed (Did review the imaging and report no acute findings.), image reviewed Disposition Clinical Impression: Supraventricular tachycardia, Chest pain Disposition: ADMITTED IP TO THIS [facility] Condition: Stable Referrals: None,Stated [Primary Care Provider] - 1-2 days
[2020-02-24 21:18] LABS: ALT 30 U/L (4-49); AST 18 U/L (17-59); African American GFR (CKD) >90 (>60 ml/min/1.73 sqM); Albumin 4.1 g/dL (3.5-5.0); Alkaline Phosphatase 89 U/L (38-126); Anion Gap 8 mmol/L; Blood Urea Nitrogen 17 mg/dL (9-20); Calcium 9.3 mg/dL (8.4-10.2); Carbon Dioxide 25 mmol/L (22-30); Chloride 105 mmol/L (98-107); Creatine Kinase 133 U/L (55-170); D-Dimer 0.2 mg/L FEU (<0.60); Glucose 105 mg/dL (74-99); INR 0.9 (<1.2); Magnesium 2.2 mg/dL (1.6-2.3); Non-African American GFR(CKD) >90 (>60 ml/min/1.73 sqM); Partial Thromboplastin Time 24.2 sec (22.0-30.0); Potassium 3.9 mmol/L (3.5-5.1); Prothrombin Time 9.9 sec (9.0-12.0); Sodium 138 mmol/L (137-145); Total Bilirubin 0.3 mg/dL (0.2-1.3)
--- NOTE | 2020-02-24 21:31 | XR ---
EXAMINATION TYPE: XR chest 2V DATE OF EXAM: 02/24/2020 COMPARISON: 02/23/2019 HISTORY: Dysrhythmia. Short of breath. Tachycardia. TECHNIQUE: FINDINGS: Heart and mediastinum are normal. Lungs are clear. Diaphragm is normal. Bony thorax appears normal. Pulmonary vascularity is normal. IMPRESSION: Normal chest. No change.
[2020-02-24] MEDS ORDERED: NITROGLYCERIN SL TABS 0.4 MG TAB SUBLINGUAL PRN (22:58)
[2020-02-24] MEDS ORDERED: HEPARIN SODIUM,PORCINE 5,000 UNIT/ML 1 ML VIAL IV ONE (22:58)
[2020-02-24] MEDS ORDERED: HEPARIN SOD,PORK IN 0.45% NACL 25,000 UNIT in 0.45% NACL 1 250ML.BAG IV SCH (23:00)
[2020-02-24] MEDS ORDERED: ALPRAZolam 0.5 MG TAB PO PRN (23:03)
[2020-02-25 03:17] LABS: Cholesterol 186 mg/dL (<200); HDL Cholesterol 28 mg/dL (40-60); LDL Cholesterol,Calculated 112 mg/dL (0-99); Triglycerides 231 mg/dL (<150)
[2020-02-25] MEDS ORDERED: ALPRAZolam 0.5 MG TAB PO PRN (08:58)
[2020-02-25] MEDS ORDERED: ALPRAZolam 0.25 MG TAB PO PRN (08:58)
[2020-02-25] MEDS ORDERED: ATORVASTATIN 80 MG TAB PO STA (08:58)
[2020-02-25] MEDS ORDERED: ASPIRIN 325 MG TAB PO SCH (09:00)
[2020-02-25] MEDS ORDERED: SERTRALINE 50 MG TAB PO SCH (09:00)
[2020-02-25] MEDS ORDERED: LOSARTAN 50 MG TAB PO SCH (09:00)
[2020-02-25] MEDS ORDERED: HYDROCHLOROTHIAZIDE 25 MG TAB PO SCH (09:00)
[2020-02-25 09:52] LABS: Glucose,Whole Blood 141 mg/dL (75-99)
[2020-02-25] MEDS ORDERED: VERAPAMIL 2.5 MG/ML 2 ML AMP ONE (11:42)
[2020-02-25] MEDS ORDERED: LIDOCAINE 1% INJ 10MG/ML (20 ML MDV) ONE (11:42)
--- NOTE | 2020-02-25 11:54 | P.HPIM ---
History of Present Illness 45-year-old male with a history of hypertension a history of SVT about a year ago who presents with complaints the onset is prior to arrival of palpitations with rapid heartbeat and some midsternal chest pain and describes it as a ti ghtness or achiness 3-4/10 severity also some shortness of breath with it. Patient did state that at home that chest discomfort was 6-7/10 in severity. No recent fevers chills nausea vomiting sweats or other symptoms reported. He does state the chest discomfort might be more pronounced in his last episode.patient was on beta rosalee for an episode of SVT in the past and the patient had a normal echocardiogram. His beta rosalee was never filled because of which patient intake the beta rosalee for about a month or more. Considering his chest pressure cardiology is according cardiac utilization of that is clear patient will be started on beta rosalee will be discharged after that. She does have history of sleep apnea doesn't use any CPAP machine at home as he did not tolerate extensive counseling regarding this and he works CPAP machines was provided to the patient weight loss counseling was provided to the patient as well Review of Systems REVIEW OF SYSTEMS: CONSTITUTIONAL: No fever, no malaise, no fatigue. HEENT: No recent visual problems or hearing problems. Denied any sore throat. CARDIOVASCULAR: as mentioned in HPI PULMONARY: no cough, no hemoptysis. GASTROINTESTINAL: No diarrhea, no nausea, no vomiting, no abdominal pain. NEUROLOGICAL: No headaches, no weakness, no numbness. HEMATOLOGICAL: Denies any bleeding or petechiae. GENITOURINARY: Denies any burning micturition, frequency, or urgency. MUSCULOSKELETAL/RHEUMATOLOGICAL: Denies any joint pain, swelling, or any muscle pain. ENDOCRINE: Denies any polyuria or polydipsia. The rest of the 14-point review of systems is negative. Past Medical History Past Medical History: Hypertension Additional Past Medical History / Comment(s): fx L4-L5 History of Any Multi-Drug Resistant Organisms: None Reported Past Surgical History: No Surgical Hx Reported Past Psychological History: No Psychological Hx Reported Smoking Status: Never smoker Past Alcohol Use History: None Reported Past Drug Use History: None Reported - Past Family History Mother Family Medical History: Diabetes Mellitus Medications and Allergies Home Medications Medication Instructions Recorded Confirmed Type Losartan Potassium [Cozaar] 100 mg PO DAILY 04/23/18 02/24/20 History Sertraline HCl [Zoloft] 50 mg PO DAILY 04/23/18 02/24/20 History Hydrochlorothiazide [Hydrodiuril] 25 mg PO DAILY 02/23/19 02/24/20 History ALPRAZolam [Xanax] 0.5 mg PO DAILY PRN 06/29/19 02/24/20 History Metoprolol Tartrate 25 mg PO BID #60 tab 02/25/20 Rx Allergies Allergy/AdvReac Type Severity Reaction Status Date / Time prochlorperazine AdvReac Hallucinati Verified 02/24/20 21:33 [From Compazine] ons prochlorperazine edisylate AdvReac Hallucinati Verified 02/24/20 21:33 [From Compazine] ons prochlorperazine maleate AdvReac Hallucinati Verified 02/24/20 21:33 [From Compazine] ons Physical Exam Vitals: Vital Signs Temp Pulse Pulse Resp BP BP Pulse Ox 02/25/20 11:16 98.1 F 87 16 139/90 97 02/25/20 08:58 98.1 F 87 16 139/90 97 02/25/20 07:31 97.8 F 89 18 132/75 97 02/25/20 03:03 98.2 F 78 20 136/80 97 02/25/20 03:02 90 18 02/25/20 00:00 98.4 F 92 90 18 157/99 142/82 98 02/24/20 21:00 98 18 148/99 97 02/24/20 20:35 98.1 F 144 H 20 147/79 95 Intake and Output 02/24/20 02/25/20 02/25/20 22:59 06:59 14:59 Intake Total 600 Balance 600 Intake: Oral 600 Other: # Voids 2 Weight 176.901 kg 174.4 kg PHYSICAL EXAMINATION: GENERAL: The patient is alert and oriented x3, not in any acute distress. obese HEENT: Pupils are round and equally reacting to light. EOMI. No scleral icterus. No conjunctival pallor. Normocephalic, atraumatic. No pharyngeal erythema. No thyromegaly. CARDIOVASCULAR: S1 and S2 present. No murmurs, rubs, or gallops. PULMONARY: Chest is clear to auscultation, no wheezing or crackles. ABDOMEN: Soft, nontender, nondistended, normoactive bowel sounds. No palpable organomegaly. MUSCULOSKELETAL: No joint swelling or deformity. EXTREMITIES: No cyanosis, clubbing, or pedal edema. NEUROLOGICAL: Gross neurological examination did not reveal any focal deficits. SKIN: No rashes. Results CBC & Chem 7: 02/24/20 20:52 02/24/20 20:52 Labs: Abnormal Lab Results - Last 24 Hours (Table) 02/24/20 02/25/20 02/25/20 Range/Units 20:52 02:44 09:51 Glucose 105 H (74-99) mg/dL POC Glucose (mg/dL) 141 H (75-99) mg/dL Triglycerides 231 H (<150) mg/dL LDL Cholesterol, Calc 112 H (0-99) mg/dL HDL Cholesterol 28 L (40-60) mg/dL Thrombosis Risk Factor Assmnt - Choose All That Apply Each Factor Represents 1 point: Age 41-60 years, Obesity (BMI >25) Other Risk Factors: No Thrombosis Risk Factor Assessment Total Risk Factor Score: 2 Thrombosis Risk Factor Assessment Level: Low Risk Assessment and Plan Plan: -episode of supraventricular tachycardia: received adenosine and presently sinus rhythm patient will be discharged on beta rosalee if cardiac catheterization did doesn't show any significant coronary occlusion. -chest pressure: Probably secondary to SVT although are stable angina cannot be ruled out ruled out patient is undergoing cardiac catheterization today -Hypertension -Morbid obesity with sleep apnea management as mentioned above if cardiac catheterization doesn't reveal any significant atherosclerotic occlusive disease and coronary vasculature patient will be discharged later today with prescription of beta rosalee
--- NOTE | 2020-02-25 11:54 | P.DS ---
Providers Date of admission: 02/24/20 23:04 Attending physician: Matias Walsh Consults: 02/24/20 22:58 Consult Physician Urgent Consulting Provider: Nic Castillo Reason/Comments: Chest pain, SVT Do you want consulting provider notified?: Yes, Notify in am Primary care physician: Stated None Hospital Course: refer to my history of present illness Patient Condition at Discharge: Stable Plan - Discharge Summary Discharge Rx Participant: Yes New Discharge Prescriptions: New Metoprolol Tartrate 25 mg PO BID #60 tab No Action Losartan Potassium [Cozaar] 100 mg PO DAILY Sertraline HCl [Zoloft] 50 mg PO DAILY Hydrochlorothiazide [Hydrodiuril] 25 mg PO DAILY ALPRAZolam [Xanax] 0.5 mg PO DAILY PRN PRN Reason: Anxiety Discharge Medication List Losartan Potassium [Cozaar] 100 mg PO DAILY 04/23/18 [History] Sertraline HCl [Zoloft] 50 mg PO DAILY 04/23/18 [History] Hydrochlorothiazide [Hydrodiuril] 25 mg PO DAILY 02/23/19 [History] ALPRAZolam [Xanax] 0.5 mg PO DAILY PRN 06/29/19 [History] Metoprolol Tartrate 25 mg PO BID #60 tab 02/25/20 [Rx] Follow up Appointment(s)/Referral(s): Tra Stanley III, MD [STAFF PHYSICIAN] - 1 Week Discharge Disposition: HOME SELF-CARE
[2020-02-25] MEDS ORDERED: NITROGLYCERIN SL TABS 0.4 MG TAB SUBLINGUAL ONE ×2 (11:59→12:01)
[2020-02-25] MEDS ORDERED: IV FLUID CONTINUATION 1,000 ML IV ONE (12:01)
[2020-02-25] MEDS ORDERED: MIDAZOLAM 2 MG/2 ML VIAL IV ONE (12:01)
[2020-02-25] MEDS ORDERED: LIDOCAINE 1% INJ 10MG/ML (20 ML MDV) SQ ONE (12:08)
[2020-02-25] MEDS ORDERED: fentaNYL (PF) 50 MCG/ML 2 ML AMP ONE (12:09)
[2020-02-25] MEDS ORDERED: VERAPAMIL SYRINGE (5 MG/10 ML) INTRAARTER ONE (12:09)
[2020-02-25] MEDS ORDERED: fentaNYL (PF) 50 MCG/ML 2 ML AMP IV ONE (12:14)
[2020-02-25] MEDS ORDERED: IOPAMIDOL-370 100ML BTL INJ ONE (12:19)
--- NOTE | 2020-02-25 12:49 | CONS ---
CONSULTATION Archie is a 45-year-old gentleman with history of paroxysmal SVT and hypertension who presented to hospital with sudden onset sustained palpitations yesterday. It lasted for quite some time and he had chest pressure associated with it. He describes it as severe intensity precordial pressure that radiated to his back and neck area. EKG showed irregular narrow complex tachycardia at around 145 beats per minute. Regular narrow complex tachycardia suggestive of an SVT and the patient apparently was given medication. I am not able to see what that was, and then converted to sinus rhythm afterwards. He probably received Adenosine. He has not had further episodes of SVT and his chest pain resolved after his heart rate improved. The patient was initially tried on the vagal maneuvers, was unsuccessful. Then he received 6 mg of Adenosine to which he responded. PAST MEDICAL HISTORY: Significant for SVT and hypertension. CURRENT MEDICATIONS: Include Zoloft, Cozaar, HydroDIURIL, and Xanax. ALLERGIES: ALLERGIES TO COMPAZINE. FAMILY HISTORY: Negative for premature coronary artery disease. SOCIAL HISTORY: He denies smoking, ETOH abuse or drug abuse. 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 REVIEW OF SYSTEMS: HEENT is unremarkable. Cardiac as described above. Respiratory as described above. GI negative. negative. ALLERGY none. Skin negative. Musculoskeletal significant for arthritis. Psychosocial negative. Endocrine negative. Hematological negative. Derm negative. Constitutional negative. Oncological negative. EXECUTIVE SALES ASSISTANT: Negative. Rest of the system review is not relevant. PHYSICAL EXAM: Patient is comfortable at rest. Vital signs are stable. There is no jugular venous distention. Carotid upstroke is normal. There is no bruit. Chest exam reveals good air entry bilaterally. Heart exam reveals first and second heart sounds. No gallop. No murmur. No rub. Abdomen is soft, nontender. Exam of extremities did not reveal any edema. Peripheral pulses are felt. Initial EKG showed SVT. I do not have subsequent EKGs on him. Cardiac enzymes have been negative. LDL cholesterol is 112. Hemoglobin is 15.7, platelet count is 263. Potassium is 3.9 and creatinine is 0.8. ASSESSMENT: 1. Paroxysmal supraventricular tachycardia. 2. Unstable angina. PLAN: I am concerned with the chest pain that the patient had with SVT. It could very well be due to the SVT, but we certainly have to rule out significant CAD. I am going to ask Dr. KARTHIKEYAN Castillo, his primary pot liner to perform a cardiac cath on him. MMODL / IJN: [id number] /
[2020-02-25] MEDS ORDERED: SODIUM CHLORIDE 0.9% 1,000 ML IV SCH ×2 (13:00→19:00)
[2020-02-25 13:15] VITALS: RESP 16
[2020-02-25] MEDS ORDERED: LOSARTAN 50 MG TAB PO STA (13:30)
--- NOTE | 2020-02-25 16:38 | CC ---
CARDIAC CATHETERIZATION REPORT DATE OF SERVICE: 02/25/2020 PROCEDURE: Left heart catheterization and coronary angiography. PERFORMED BY: Dr. Geena Castillo. Moderate conscious sedation time was 17 minutes. Patient was administered Versed. Oxygen saturation, hemodynamics and EKG were monitored closely. CLINICAL INFORMATION: Mr. Archie Willis is a 45-year-old morbidly obese gentleman who has paroxysmal SVT and hypertension. He stopped taking his medications, came in with accelerated hypertension and SVT and subsequently converted to sinus rhythm. He had chest pain suggestive of angina. He was seen and evaluated by Dr. Hill, who advised coronary angiography. I saw the patient, explained to him the rationale, risks, benefits and options, and he wished to proceed with the procedure. PROCEDURE NOTE: Under local anesthesia and strict aseptic precautions, a 6-Palestinian introducer was placed in the right radial artery. Using standard Nikhil catheters I performed coronary angiography, and the same right catheter was used to check LV pressures. LV gram was not performed. The sheath was taken out and TR band applied as per protocol and he was sent to the room in stable condition. CARDIAC CATHETERIZATION FINDINGS: The left ventricular end-diastolic pressure was about 12 mmHg without any gradient across the aortic valve. CORONARY ANGIOGRAPHY FINDINGS: RIGHT CORONARY ARTERY: Large superdominant vessel. No significant disease. Distally bifurcates into PDA and PLV and supplies a sizable amount of myocardium. No significant disease in RCA. LEFT MAIN CORONARY ARTERY: Short patent disease-free vessel, free of significant disease. Bifurcates into LAD and circumflex. LEFT ANTERIOR DESCENDING CORONARY ARTERY: Good-caliber vessel extends along the anterior wall. No significant disease. Gives off septal and diagonal branches. CIRCUMFLEX CORONARY ARTERY: This is a good-caliber, good-distribution vessel. Minor irregularities. No significant disease. RAMUS INTERMEDIUS: There is a high obtuse marginal or the ramus, which is also free of significant disease and is of large caliber and distribution. This patient has very large coronaries; no significant disease. All vessels are quite large. Left ventriculogram was not performed. FINAL IMPRESSION: This patient has no significant obstructive CAD. Normal filling pressures. No gradient across the aortic valve. He has a superdominant RCA. All vessels are quite large and free of significant disease. RECOMMENDATIONS: Continued medical therapy and risk factor modification were advised. Compliance with medications advised. Avoid caffeine-like stimulants and to take beta blockers and losartan for BP control and for his supraventricular tachycardia. The patient can be discharged later on today. MMODL / IJN: [id number] / KENY
[2020-02-25 16:45] VITALS: BP 148/83; PULSE 87; TEMP 97.9
[2020-02-25] MEDS ORDERED: METOPROLOL TARTRATE 25 MG TAB PO SCH (21:00)
--- NOTE | 2020-03-02 16:00 | ECHOF ---
Referral Reason:chest pain MEASUREMENTS -------- HEIGHT: 193.0 cm WEIGHT: 174.2 kg BP: 132/75 IVSd: 1.3 cm (0.6 - 1.1) LVIDd: 3.8 cm (3.9 - 5.3) LVPWd: 1.3 cm (0.6 - 1.1) IVSs: 1.7 cm LVIDs: 1.8 cm LVPWs: 1.3 cm LAESV Index (A-L): 15.53 ml/m MV E Charlie: 0.66 m/s MV DecT: 195 ms MV A Charlie: 0.72 m/s MV E/A Ratio: 0.91 FINDINGS -------- Sinus rhythm. This was a technically difficult study with suboptimal views. Morbid Obesity The left ventricular size is normal. There is mild concentric left ventricular hypertrophy. Overa ll left ventricular systolic function is normal with, an EF between 60 - 65 %. The RV was not well visualized. Normal LA size by volume 22+/-6 ml/m2. The right atrium was not well visualized. 5.0mg of Lumason was utilized for enhancement of images The aortic valve was not well visualized. There is no evidence of aortic regurgitation. There is no evidence of aortic stenosis. The mitral valve was not well visualized. No mitral regurgitation. The tricuspid valve was not well visualized. Unable to estimate RVSP due to inadequate TR jet spect ral doppler profile. The pulmonic valve was not well visualized. There is no pericardial effusion. CONCLUSIONS -------- 1. Sinus rhythm. 2. This was a technically difficult study with suboptimal views. 3. Morbid Obesity 4. The left ventricular size is normal. 5. There is mild concentric left ventricular hypertrophy. 6. Overall left ventricular systolic function is normal with, an EF between 60 - 65 %. 7. The RV was not well visualized. 8. Normal LA size by volume 22+/-6 ml/m2. 9. The right atrium was not well visualized. 10. 5.0mg of Lumason was utilized for enhancement of images 11. The aortic valve was not well visualized. 12. There is no evidence of aortic regurgitation. 13. There is no evidence of aortic stenosis. 14. The mitral valve was not well visualized. 15. No mitral regurgitation. 16. The tricuspid valve was not well visualized. 17. Unable to estimate RVSP due to inadequate TR jet spectral doppler profile. 18. The pulmonic valve was not well visualized. 19. There is no pericardial effusion. NURSE PRACTITIONER PHYSICIAN ASSISTANT: Marylou Joseph RDCS
== END 2020-02-25 18:46 | disposition home or self-care (01) ==
LOC: EC 20:27 → 3SCARD 23:04
PROVIDERS: ADMIT Internal Medicine; ATTEND Internal Medicine
DX: I47.1 Supraventricular tachycardia (principal); R07.89 Other chest pain; I10 Essential (primary) hypertension; M19.90 Unspecified osteoarthritis, unspecified site; E66.01 Morbid (severe) obesity due to excess calories; Z68.42 Body mass index [BMI] 45.0-49.9, adult; G47.30 Sleep apnea, unspecified; Z99.89 Dependence on other enabling machines and devices; Z91.19 Patient's noncompliance with other medical treatment and regimen; Z20.828 Contact with and (suspected) exposure to other viral communicable diseases; Z79.899 Other long term (current) drug therapy; Z88.8 Allergy status to other drugs, medicaments and biological substances; Z87.81 Personal history of (healed) traumatic fracture; Z83.3 Family history of diabetes mellitus
CPT/HCPCS: 99152; 96361 ×2; 93005 ×2; 96374; 96375; 99285; 36415; 93306; 93458; 85379; 80061; 80053; 82550; 83735; 84443; 84484 ×2; 85025; 85610; 85730 ×2; 71046; G0378 ×2; C1769; C1894; U0003; J2250; J1644 ×3; J2001; J3010; J0153; Q9950; Q9967